=== PATIENT | female | born 1985 | race Two or more races ===

== ENCOUNTER 2017-02-01 15:13 | Emergency (ER) | payer OTHER ==
[2017-02-01 15:20] VITALS: BP 122/66; PULSE 76; RESP 18; TEMP 98.9; O2SAT 100
--- NOTE | 2017-02-01 16:09 | ED PDOC ---
HPI: Skin/Bite Injury Time Seen by Provider: 02/01/17 15:57 Chief Complaint (Nursing): Abnormal Skin Integrity Chief Complaint (Provider): Abnormal Skin Integrity History Per: Patient History/Exam Limitations: no limitations Onset/Duration Of Symptoms: Days (1x week) Current Symptoms Are (Timing): Still Present Location Of Injury: Left: Face Quality Of Symptoms: Itching Severity: Moderate Additional Complaint(s): 32 year old female with no pertinent medical history presents to the ED with complaints of abnormal skin integrity that started 1x week ago and worsened last night. She reports that 1x month ago, the right side of her face ( localized to under eye and cheek area) developed a rash and spontaneously resolved a few weeks later, and 1x week ago, the left side of her face developed a rash. She reports that last night it worsened and she had severe itching of the area. She reports that she recently switched face creams and recently started using [employer] sunscreen with 60 SPF. She denies shaving any recent sun exposure, using any medications, and having fevers and chills. PMD: not provided. Past Medical History Reviewed: Historical Data, Nursing Documentation, Vital Signs Vital Signs: Last Vital Signs Temp 98.9 F 02/01/17 15:18 Pulse 76 02/01/17 15:18 Resp 18 02/01/17 15:18 BP 122/66 02/01/17 15:18 Pulse Ox 100 02/01/17 16:24 - Medical History PMH: No Chronic Diseases - Surgical History Surgical History: No Surg Hx - Family History Family History: States: No Known Family Hx - Social History Current smoker - smoking cessation education provided: No Alcohol: None Drugs: Denies - Allergies Allergies/Adverse Reactions: Allergies Allergy/AdvReac Type Severity Reaction Status Date / Time No Known Allergies Allergy Verified 02/01/17 15:18 Review of Systems ROS Statement: Except As Marked, All Systems Reviewed And Found Negative Constitutional: Negative for: Fever, Chills Skin: Positive for: Rash (left side of face.) Physical Exam - Reviewed Nursing Documentation Reviewed: Yes Vital Signs Reviewed: Yes - Physical Exam Appears: Positive for: Well, Non-toxic, No Acute Distress Head Exam: Positive for: ATRAUMATIC, NORMOCEPHALIC Skin: Positive for: Warm, Dry, Rash (mild erythema and thickening noted to facial region of face without signs of infection. no urticaria noted. non-tender ) Eye Exam: Positive for: Normal appearance, EOMI, PERRL Cardiovascular/Chest: Positive for: Regular Rate, Rhythm Respiratory: Positive for: Normal Breath Sounds. Negative for: Respiratory Distress Neurologic/Psych: Positive for: Alert, Oriented (3x) - ECG O2 Sat by Pulse Oximetry: 100 (RA) Pulse Ox Interpretation: Normal Medical Decision Making Medical Decision Makin:57 Initial impression: 32 year old female with abnormal skin integrity. Plan: Refer patient to horologist apprentice for evaluation. Scribe Attestation: Documented by Almaz Julien, acting as a scribe for Jace Jones PA-C. Provider Scribe Attestation: All medical record entries made by the Scribe were at my direction and personally dictated by me. I have reviewed the chart and agree that the record accurately reflects my personal performance of the history, physical exam, medical decision making, and the department course for this patient. I have also personally directed, reviewed, and agree with the discharge instructions and disposition. Disposition - Clinical Impression Clinical Impression: Rash - Disposition Referrals: Zak Cain MD [Staff Provider] - Disposition: Routine/Home Disposition Time: 16:35 Condition: FAIR Additional Instructions: Stop Vitamin A supplements until seen by your pmd. Instructions: Photosensitivity (ED)
== END 2017-02-01 16:54 | disposition home or self-care (01) ==
LOC: H.ER 15:13
DX: R21 Rash and other nonspecific skin eruption (principal)